=== PATIENT | female | born 1960 ===

== ENCOUNTER 2017-03-22 14:36 | Emergency (ER) | payer MEDICARE, OTHER ==
[2017-03-22 14:36] VITALS: BMI 24.0
[2017-03-22] MEDS ORDERED: Albuterol-Ipratrop 3 mg / 0.5 (3 ml) UD ONE ×2 (14:52→15:35)
--- NOTE | 2017-03-22 15:14 | C.PDOC ---
History Of Present Illness 57 y/o female, past medical history of asthma and COPD, presents to emergency department with complaints of cough and congestion for 2 days. Denies fevers, chills, nausea, vomiting, chest pain, or SOB. Time Seen by Provider: 03/22/17 15:02 Chief Complaint (Nursing): Shortness Of Breath History Per: Patient History/Exam Limitations: no limitations Onset/Duration Of Symptoms: Hrs Current Symptoms Are (Timing): Still Present Initiating Event: Upper Respiratory Illness, Out Of Medications Exacerbating Factor(s): Coughing Current Respiratory Medications: See Home Med List Severity: Mild Associated Symptoms: denies: Fever, Chills, Chest Pain, Bloody Cough, Dizziness Recent travel outside of the [place]: No Past Medical History Reviewed: Historical Data, Nursing Documentation, Vital Signs Vital Signs: Last Vital Signs Temp 97.8 F 03/22/17 14:55 Pulse 99 H 03/22/17 14:55 Resp 20 03/22/17 15:30 BP 101/64 03/22/17 14:55 Pulse Ox 97 03/22/17 17:12 - Medical History PMH: Alzheimer's Disease, Asthma, CAD, Dementia, Diabetes (type II), HTN, Hypercholesterolemia, TIA Surgical History: Hernia Repair (ventral, inguinal), (x3) - [facility] Procedures CYSTOSCOPY NEC (07/30/13) Family History: States: Unknown Family Hx - Social History Hx Tobacco Use: No Hx Alcohol Use: Yes Hx Substance Use: No - Immunization History Hx Tetanus Toxoid Vaccination: No Hx Influenza Vaccination: No Hx Pneumococcal Vaccination: No Review Of Systems Except As Marked, All Systems Reviewed And Found Negative. Constitutional: Negative for: Fever, Chills ENT: Positive for: Nose Congestion Cardiovascular: Negative for: Chest Pain Respiratory: Positive for: Cough, Sputum, Other (rhonchi bilateral). Negative for: Shortness of Breath, Wheezing Gastrointestinal: Negative for: Nausea, Vomiting Skin: Negative for: Rash Physical Exam - Physical Exam Appears: Non-toxic, No Acute Distress Skin: Warm, Dry Head: Atraumatic, Normacephalic Oral Mucosa: Moist Chest: Symmetrical Cardiovascular: Rhythm Regular Respiratory: No Accessory Muscle Use, No Rales, Rhonchi (bilaterally), No Wheezing Gastrointestinal/Abdominal: Soft, No Tenderness Back: Normal Inspection Extremity: Normal ROM, Capillary Refill (< 2 sec. ) Neurological/Psych: Oriented x3, Normal Speech, Normal Cognition Gait: Steady ED Course And Treatment - Laboratory Results Result Diagrams: 03/22/17 15:56 03/22/17 15:56 Lab Interpretation: Normal O2 Sat by Pulse Oximetry: 97 (RA) Pulse Ox Interpretation: Normal - Radiology CXR: Interpreted by Me CXR Interpretation: Yes: No Acute Disease Progress Note: EKG, CxR, bloodwork ordered. Treated with duoneb and prednisone. On re-evaluation feeling better, lungs clear, ambulating Reassessment Condition: Improved Disposition Counseled Patient/Family Regarding: Studies Performed, Diagnosis, Need For Followup, Rx Given - Disposition Referrals: [facility] [Outside] [email or web address] [Outside] Disposition: HOME/ ROUTINE Disposition Time: 17:30 Condition: STABLE Additional Instructions: return to ED if any increase symptoms Prescriptions: Albuterol HFA [Ventolin HFA 90 mcg/actuation (8 g)] 2 puff IH [id number] PRN #1 pkg PRN Reason: Shortness Of Breath predniSONE [Prednisone] 40 mg PO DAILY #4 tab Instructions: Asthma (ED), How to Use a Nebulizer (ED) - POA Present On Arrival: None - Clinical Impression Clinical Impression: Asthma, COPD (chronic obstructive pulmonary disease), Asthma with COPD - PA / DOT NET DEVELOPER / Resident Statement MD/DO has reviewed & agrees with the documentation as recorded. - Scribe Statement The provider has reviewed the documentation as recorded by the Estradaibkathia Kramer All medical record entries made by the Estraadibkathia were at my direction and personally dictated by me. I have reviewed the chart and agree that the record accurately reflects my personal performance of the history, physical exam, medical decision making, and the department course for this patient. I have also personally directed, reviewed, and agree with the discharge instructions and disposition.
[2017-03-22] MEDS: Albuterol-Ipratrop 3 mg / 0.5 (3 ml) UD IH SCH ×3 (15:15→15:44)
--- NOTE | 2017-03-22 15:52 | RAD ---
PROCEDURE: CHEST RADIOGRAPH, 1 VIEW HISTORY: SOB COMPARISON: Comparison chest 04/12/2016 FINDINGS: LUNGS: Poor inspiration with low lung volumes, mild crowded bronchovascular markings and mild bibasilar atelectasis PLEURA: No pneumothorax or pleural fluid seen. CARDIOVASCULAR: Normal. OSSEOUS STRUCTURES: No significant abnormalities. VISUALIZED UPPER ABDOMEN: Normal. OTHER FINDINGS: None. IMPRESSION: Poor inspiration with low lung volumes, mild crowded bronchovascular markings and mild bibasilar atelectasis
[2017-03-22 16:05] LABS: BASO % 0.4 % (0.0-2.0); EOS # 0.1 K/uL (0.0-0.7); EOS % 1.1 % (0.0-4.0); HEMATOCRIT 40.5 % (34.0-47.0); LYMPH # 4.1 K/uL (1.0-4.3); LYMPH % 63.4 % (20.0-40.0); MEAN CELL VOLUME 82.6 fL (81.0-99.0); MEAN CORPUSCULAR HEMOGLOBIN 27.5 pg (27.0-31.0); MEAN CORPUSCULAR HGB CONC 33.3 g/dL (33.0-37.0); MEAN PLATELET VOLUME 11.1 fL (7.2-11.7); MONO # 0.5 K/uL (0.0-0.8); MONO % 7.1 % (0.0-10.0); NRBC % 0.1 % (0.0-2.0); RED CELL DISTRIBUTION WIDTH 14.4 % (11.5-14.5); WHITE BLOOD COUNT 6.4 K/uL (4.8-10.8)
[2017-03-22 16:17] LABS: CHLORIDE 102 mmol/L (98-107)
[2017-03-22 16:18] LABS: POTASSIUM 4.4 mmol/L (3.6-5.2); SODIUM 139 mmol/L (132-148)
[2017-03-22 16:20] LABS: ALB/GLOB RATIO 1.3 (1.0-2.1); AST/SGOT 38 U/L (14-36); BILIRUBIN,TOTAL 0.7 mg/dL (0.2-1.3); BLOOD UREA NITROGEN 12 mg/dL (7-17); CARBON DIOXIDE 24 mmol/L (22-30); GFR AFRICAN-AMERICAN > 60; TOTAL PROTEIN 7.4 g/dL (6.3-8.3)
[2017-03-22 16:21] LABS: ALKALINE PHOSPHATASE 68 U/L (38-126); ALT/SGPT 23 U/L (9-52); CALCIUM 8.8 mg/dl (8.6-10.4); GLUCOSE,RANDOM 180 mg/dL (65-105)
[2017-03-22 18:02] VITALS: BP 125/77; PULSE 90; RESP 18; TEMP 97.9; O2SAT 98
--- NOTE | 2017-03-26 15:32 | CARD ---
APPROVED REPORT EKG Measurement Heart [id number] NM 172P52 [id number] <Conclusion> Normal sinus rhythm Prolonged QT Abnormal ECG
== END 2017-03-22 18:02 | disposition home or self-care (01) ==
LOC: C.ER 14:36
DX: J44.9 Chronic obstructive pulmonary disease, unspecified (principal)
CPT/HCPCS: 71010; 80053; 83880; 85025; 93005; 94640; 96374; 99284; J2930

== ENCOUNTER 2017-11-29 15:23 | Emergency (ER) | payer MEDICARE, OTHER ==
[2017-11-29 15:23] VITALS: BMI 24.0
[2017-11-29 16:11] VITALS: O2SAT 100
--- NOTE | 2017-11-29 17:25 | C.PDOC ---
History Of Present Illness 57 y/o female with history of 2 strokes, DM, HTN and Arthritis presents to ED with complaints of intermittent pressure headache for 3 days. Patient states she feels pressure and numbness to sinus area of face with associated swelling and reports bleeding from nose and mouth. Patient reports chills and states when she wakes up feels nausea. Patient denies chest pain, sob, fever or any other complaints at this time. Time Seen by Provider: 11/29/17 17:08 Chief Complaint (Nursing): Dizziness/Lightheaded History Per: Patient History/Exam Limitations: no limitations Onset/Duration Of Symptoms: Days Current Symptoms Are (Timing): Still Present Past Medical History Reviewed: Historical Data, Nursing Documentation, Vital Signs Vital Signs: Last Vital Signs Temp 98.6 F 11/29/17 16:08 Pulse 79 11/29/17 16:08 Resp 20 11/29/17 16:08 BP 143/81 11/29/17 16:08 Pulse Ox 100 11/29/17 17:31 - Medical History PMH: Alzheimer's Disease, Asthma, CAD, Dementia, Diabetes (type II), HTN, Hypercholesterolemia, TIA Surgical History: Hernia Repair (ventral, inguinal), (x3) - [facility] Procedures CYSTOSCOPY NEC (07/30/13) GROUP PSYCHOTHERAPY (05/31/17) INDIVIDUAL PSYCHOTHERAPY, BEHAVIORAL (05/31/17) Family History: States: No Known Family Hx - Social History Hx Tobacco Use: No Hx Alcohol Use: No Hx Substance Use: No - Immunization History Hx Tetanus Toxoid Vaccination: No Hx Influenza Vaccination: No Hx Pneumococcal Vaccination: No Review Of Systems Constitutional: Positive for: Chills. Negative for: Fever ENT: Positive for: Nose Discharge Gastrointestinal: Positive for: Nausea. Negative for: Vomiting Skin: Negative for: Rash Neurological: Positive for: Numbness, Headache. Negative for: Weakness Physical Exam - Physical Exam Appears: Non-toxic, No Acute Distress Skin: Warm, Dry, No Rash Head: Atraumatic, Normacephalic Eye(s): bilateral: Normal Inspection Ear(s): Bilateral: Normal Nose: Epistaxis (right nostril), No Deformity Neck: Normal ROM, Other (Swollen glands) Cardiovascular: Rhythm Regular Respiratory: Normal Breath Sounds, No Rales, No Rhonchi, No Wheezing Gastrointestinal/Abdominal: Soft, No Tenderness, No Guarding, No Rebound Back: No CVA Tenderness Extremity: Normal ROM, Capillary Refill (<2 seconds) Neurological/Psych: Oriented x3 ED Course And Treatment - Laboratory Results Result Diagrams: 11/29/17 17:44 11/29/17 17:44 Lab Interpretation: No Acute Changes ECG: Interpreted By Me ECG Rhythm: Sinus Rhythm ECG Interpretation: Normal O2 Sat by Pulse Oximetry: 100 (RA) Pulse Ox Interpretation: Normal - CT Scan/US sinuses Other Rad Studies (CT/US): Read By Radiologist, Radiology Report Reviewed CT/US Interpretation: Accession No. : [id number]. Patient Name / ID : JOSE BEE / [id number]. Exam Date : 11/29/2017 17:57:55 ( Approved ). Study Comment : Sex / Age : F / 57Y. Creator : Jade Alfredo. Dictator : Rafat Gaytan MD. Electric Plater : Supervisor Drying And Winding : Rafat Gaytan MD. Approver2 : Report Date : 11/29/2017 18:06:50. My Comment : . PROCEDURE: CT SINUSES WITHOUT CONTRAST. HISTORY: sinus pain with epistaxis. COMPARISON : None. TECHNIQUE: Contiguous axial CT images of the paranasal sinuses were obtained. Coronal and sagittal reformats were generated. Radiation dose: Total exam DLP = 716.53 mGy-cm. This CT exam was performed using one or more of the followin complex intact bilaterally. G dose reduction techniques: Automated exposure control, adjustment of the mA and/or kV according to patient size, and/or use of iterative reconstruction technique. FINDINGS: FRONTAL SINUSES: Clear. ETHMOID SINUSES: Clear. SPHENOID SINUSES: Clear. MAXILLARY SINUSES: . Dependent fluid in the maxillary sinus bilaterally. Small left maxillary retention cyst/polyp. SINUS DRAINAGE: Osteomeatal complexes, frontal recesses and sphenoethmoid recesses clear. NASAL SEPTUM: No significant deviation. No destructive lesion. MASS: None. SKULL BASE: Unremarkable. TEMPORAL BONES: Middle ears and mastoid grossly unremarkable. OTHER FINDINGS: None. IMPRESSION: Dependent fluid in both maxillary antra. Possible bilateral acute maxillary sinusitis. Please correlate. Small left maxillary retention cyst/ polyp. Otherwise unremarkable. Reevaluation Time: 18:56 Reassessment Condition: Improved Disposition Counseled Patient/Family Regarding: Studies Performed, Diagnosis, Need For Followup, Rx Given - Disposition Referrals: Alvina Forde MD [Medical Doctor] - Disposition: HOME/ ROUTINE Disposition Time: 19:00 Condition: IMPROVED Prescriptions: Acetaminophen [Tylenol 325mg tab] 650 mg PO Q4 PRN #60 tab PRN Reason: Pain, Moderate (4-7) Clarithromycin [Clarithromycin ER] 500 mg PO BID #20 ter Instructions: Sinusitis (ED) Forms: [employer] (Luxembourgish) Print Language: CITIZEN OF [place] - POA Present On Arrival: None - Clinical Impression Clinical Impression: Sinusitis, acute - Scribe Statement The provider has reviewed the documentation as recorded by the Stefan Pittman All medical record entries made by the Stefan were at my direction and personally dictated by me. I have reviewed the chart and agree that the record accurately reflects my personal performance of the history, physical exam, medical decision making, and the department course for this patient. I have also personally directed, reviewed, and agree with the discharge instructions and disposition.
[2017-11-29 17:49] LABS: BASO # 0.1 K/uL (0.0-0.2); BASO % 0.8 % (0.0-2.0); EOS # 0.1 K/uL (0.0-0.7); EOS % 1.3 % (0.0-4.0); HEMOGLOBIN 13.1 g/dL (11.0-16.0); LYMPH # 3.4 K/uL (1.0-4.3); MEAN CELL VOLUME 81.8 fL (81.0-99.0); MEAN CORPUSCULAR HEMOGLOBIN 27.8 pg (27.0-31.0); MEAN CORPUSCULAR HGB CONC 34.1 g/dL (33.0-37.0); MEAN PLATELET VOLUME 10.9 fL (7.2-11.7); MONO # 0.3 K/uL (0.0-0.8); MONO % 4.5 % (0.0-10.0); NEUT # 2.9 K/uL (1.8-7.0); NEUT % 43.4 % (50.0-75.0); NRBC % 0.1 % (0.0-2.0); RBC 4.7 Mil/uL (3.80-5.20); RED CELL DISTRIBUTION WIDTH 14.2 % (11.5-14.5); WHITE BLOOD COUNT 6.8 K/uL (4.8-10.8)
[2017-11-29 18:01] LABS: GFR AFRICAN-AMERICAN > 60; GFR NON-AFRICAN AMERICAN > 60; PROTHROMBIN TIME 11.6 SECONDS (9.7-12.2)
[2017-11-29 18:18] LABS: ALB/GLOB RATIO 1.3 (1.0-2.1); ALT/SGPT 20 U/L (9-52); AST/SGOT 33 U/L (14-36); BLOOD UREA NITROGEN 15 mg/dL (7-17)
--- NOTE | 2017-11-29 18:41 | CT ---
PROCEDURE: CT SINUSES WITHOUT CONTRAST HISTORY: sinus pain with epistaxis COMPARISON: None TECHNIQUE: Contiguous axial CT images of the paranasal sinuses were obtained. Coronal and sagittal reformats were generated. Radiation dose: Total exam DLP = 716.53 mGy-cm. This CT exam was performed using one or more of the followin complex intact bilaterally. G dose reduction techniques: Automated exposure control, adjustment of the mA and/or kV according to patient size, and/or use of iterative reconstruction technique. FINDINGS: FRONTAL SINUSES: Clear. ETHMOID SINUSES: Clear. SPHENOID SINUSES: Clear. MAXILLARY SINUSES: . Dependent fluid in the maxillary sinus bilaterally. Small left maxillary retention cyst/polyp. SINUS DRAINAGE: Osteomeatal complexes, frontal recesses and sphenoethmoid recesses clear. NASAL SEPTUM: No significant deviation. No destructive lesion. MASS: None. SKULL BASE: Unremarkable. TEMPORAL BONES: Middle ears and mastoid grossly unremarkable. OTHER FINDINGS: None. IMPRESSION: Dependent fluid in both maxillary antra. Possible bilateral acute maxillary sinusitis. Please correlate. Small left maxillary retention cyst/ polyp. Otherwise unremarkable.
[2017-11-29 19:03] VITALS: BP 134/82; PULSE 76; RESP 18; TEMP 97.9
--- NOTE | 2017-11-30 12:50 | CARD ---
APPROVED REPORT EKG Measurement Heart [id number] [place] 172P52 [id number] <Conclusion> Normal sinus rhythm Normal ECG
== END 2017-11-29 19:27 | disposition home or self-care (01) ==
LOC: C.ER 15:23
DX: J01.90 Acute sinusitis, unspecified (principal)

== ENCOUNTER 2017-12-22 12:59 | Emergency (ER) | payer MEDICARE, OTHER ==
[2017-12-22 13:20] VITALS: BMI 25.7
[2017-12-22 13:21] VITALS: RESP 18; TEMP 98.3
[2017-12-22] MEDS ORDERED: Iohexol 240 (50 ml) PO STA (14:41)
[2017-12-22] MEDS ORDERED: Sodium Chloride 0.9% 1,000 ML IV ONE (14:41)
--- NOTE | 2017-12-22 14:48 | C.PDOC ---
History Of Present Illness <Magdalena Vanegas - Last Filed: 12/22/17 17:26> <Topher Mcmullen DO - Last Filed: 12/22/17 20:51> CC: "belly distension" HPI: 57 year old female with past medical history of DM type II, HLD who presents to the ED for nausea and abdominal distension. She states she has noticed her abdomen distended for 3 days. She has also had LUQ pain for the past 3 days that has been a constant 5/10 pain that does not radiate. She states the pain feels like something is in her abdomen. She states she did eat this morning but can only eat small amounts of food for that past 3 days. She has had nausea but denies vomiting. She states she had a normal bowel movement today. She denies blood in her stool, dysuria, shortness of breath, chest pain , palpitations, sick contacts, diarrhea or constipation. PMD: does not recall Past Medical History: DM type II; HLD; sinusitis; arthritis Past Surgical History: c-sections x3; fibroids; hysterectomy; hernia Medications: does not recall medication doses - Metformin; Metoprolol; Aspirin Allergies: Penicillin- rash; iodine - rash Social History: 1 cigarette per day for 16 years; denies alcohol use; denies illicit drug use (Magdalena Vanegas) History Per: Patient History/Exam Limitations: no limitations Current Symptoms Are (Timing): Still Present Severity: Moderate Pain Scale Rating Of: 5 Location Of Pain/Discomfort: LUQ Radiation Of Pain To:: None Quality Of Discomfort: Other (feels like something is there ) Associated Symptoms: Nausea Exacerbating Factors: Food Last Bowel Movement: Today <Magdalena Vanegas - Last Filed: 12/22/17 17:26> <Topher Mcmullen DO - Last Filed: 12/22/17 20:51> Chief Complaint (Nursing): Abdominal Pain Past Medical History - Medical History PMH: Alzheimer's Disease, Asthma, CAD, Dementia, Diabetes (type II), HTN, Hypercholesterolemia, TIA Denies: HIV, Chronic Kidney Disease Surgical History: Hernia Repair (ventral, inguinal), (x3) Family History: States: Unknown Family Hx - Social History Hx Tobacco Use: No Hx Alcohol Use: No Hx Substance Use: No - Immunization History Hx Tetanus Toxoid Vaccination: No Hx Influenza Vaccination: No Hx Pneumococcal Vaccination: No <Magdalena Vanegas - Last Filed: 12/22/17 17:26> Vital Signs: Last Vital Signs Temp 98.3 F 12/22/17 17:47 Pulse 67 12/22/17 17:47 Resp 18 18 17:47 BP 120/77 12/22/17 17:47 Pulse Ox 100 12/22/17 17:47 - [facility] Procedures CYSTOSCOPY NEC (07/30/13) GROUP PSYCHOTHERAPY (05/31/17) INDIVIDUAL PSYCHOTHERAPY, BEHAVIORAL (05/31/17) Review Of Systems Constitutional: Negative for: Fever, Chills Cardiovascular: Negative for: Chest Pain, Palpitations, Light Headedness Respiratory: Negative for: Cough, Shortness of Breath Gastrointestinal: Positive for: Nausea, Abdominal Pain. Negative for: Vomiting , Diarrhea, Constipation, Melena, Hematochezia Genitourinary: Negative for: Dysuria, Hematuria Neurological: Negative for: Dizziness <Magdalena Vanegas S. - Last Filed: 12/22/17 17:26> Physical Exam - Physical Exam Appears: Well Skin: Normal Color Head: Atraumatic, Normacephalic Eye(s): bilateral: Normal Inspection, PERRL, EOMI Oral Mucosa: Moist Cardiovascular: Rhythm Regular, No Murmur Respiratory: Normal Breath Sounds, No Decreased Breath Sounds, No Accessory Muscle Use, No Rales, No Rhonchi, No Stridor, No Wheezing Gastrointestinal/Abdominal: Bowel Sounds (normal), Soft, Tenderness (RUQ tenderness; + Bautista sign), Distention, No Guarding, No Rebound, No Ascites Extremity: No Tenderness, No Pedal Edema, No Calf Tenderness Neurological/Psych: Oriented x3, Normal Speech, Normal Cognition <Magdalena Vanegas S. - Last Filed: 12/22/17 17:26> ED Course And Treatment - Laboratory Results Result Diagrams: 12/22/17 15:43 12/22/17 15:43 O2 Sat by Pulse Oximetry: 98 <Magdalena Vanegas S. - Last Filed: 12/22/17 17:26> - Laboratory Results Result Diagrams: 12/22/17 15:43 12/22/17 15:43 <Topher Mcmullen DO - Last Filed: 12/22/17 20:51> Medical Decision Making <Magdalena Vanegas - Last Filed: 12/22/17 17:26> <Topher Mcmullen DO - Last Filed: 12/22/17 20:51> Medical Decision Making: Abdominal Pain - Abdominal/Pelvis CT: mild bladder wall thickening, possibly artifactual due to inadequate distension. Correlate for cystitis. - US: fatty infiltration of the liver. Geographic hypoechoic region in the right lobe of the liver likely reflects focal fatty sparing. No evidence of cholelithiasis or cholecystitis. - cbc wnl - cmp wnl - UA: negative - lipase: wnl - NS @250cc/hr - Zofran 4mg IV once - Pepcid 20mg IV once (Magdalena Vanegas) Disposition Discussed With Dr.: Topher Mcmullen DO Doctor Will See Patient In The: ED - Disposition Disposition Time: 17:28 <Magdalena Vanegas - Last Filed: 12/22/17 17:26> - Disposition Disposition Time: 17:00 <Topher Mcmullen DO - Last Filed: 12/22/17 20:51> - Disposition Referrals: [facility] Leidy Reangélica, [Non-Staff] - Disposition: HOME/ ROUTINE Condition: GOOD Additional Instructions: Thank you for letting us take care of you today. The emergency medical care you received today was directed at your acute symptoms. If you were prescribed any medication, please fill it and take as directed. It may take several days for your symptoms to resolve. Return to the Emergency Department if your symptoms worsen, do not improve, or if you have any other problems. Please contact your doctor or call one of the physicians/clinics you have been referred to that are listed on the Patient Visit Information form that is included in your discharge packet. Bring any paperwork you were given at discharge with you along with any medications you are taking to your follow up visit. Our treatment cannot replace ongoing medical care by a primary care provider (PCP) outside of the emergency department. Thank you for allowing the [facility] team to be part of your care today. Follow up with your doctor in 4-5 days for re-evaluation and further management. Instructions: Constipation in Adults Forms: [employer] (Korean) - Clinical Impression Clinical Impression: Constipation
[2017-12-22] MEDS ORDERED: Iohexol 240 (50 ml) ONE (15:03)
[2017-12-22] MEDS ORDERED: Sodium Chloride 0.9% 1,000 ML ONE (15:04)
[2017-12-22 15:49] LABS: BASO # 0.1 K/uL (0.0-0.2); BASO % 0.9 % (0.0-2.0); EOS # 0.1 K/uL (0.0-0.7); EOS % 0.8 % (0.0-4.0); HEMOGLOBIN 13.4 g/dL (11.0-16.0); MEAN CELL VOLUME 81.5 fL (81.0-99.0); MEAN CORPUSCULAR HEMOGLOBIN 28.6 pg (27.0-31.0); MEAN CORPUSCULAR HGB CONC 35.1 g/dL (33.0-37.0); MEAN PLATELET VOLUME 11.1 fL (7.2-11.7); MONO # 0.3 K/uL (0.0-0.8); MONO % 4.8 % (0.0-10.0); NEUT % 46.5 % (50.0-75.0); NRBC % 0.1 % (0.0-2.0); RBC 4.68 Mil/uL (3.80-5.20); RED CELL DISTRIBUTION WIDTH 14.3 % (11.5-14.5); WHITE BLOOD COUNT 6.5 K/uL (4.8-10.8)
[2017-12-22 16:00] LABS: SQUAMOUS EPITHIAL < 1 /hpf (0-5); URINE BILIRUBIN NEGATIVE (NEGATIVE); URINE BLOOD NEGATIVE (NEGATIVE); URINE CLARITY Clear (Clear); URINE COLOR Yellow (YELLOW); URINE GLUCOSE (UA) 2+ mg/dL (Normal); URINE LEUKOCYTE ESTERASE NEG Leu/uL (Negative); URINE NITRATE NEGATIVE (NEGATIVE); URINE PROTEIN NEGATIVE (NEGATIVE); URINE UROBILINOGEN NORMAL mg/dL (0.2-1.0)
[2017-12-22 16:08] LABS: ALB/GLOB RATIO 1.3 (1.0-2.1); ALBUMIN 3.9 g/dL (3.5-5.0); CALCIUM 9.4 mg/dl (8.6-10.4); GFR AFRICAN-AMERICAN > 60; GFR NON-AFRICAN AMERICAN > 60; LIPASE 178 U/L (23-300)
[2017-12-22 16:09] LABS: ALT/SGPT 23 U/L (9-52); AST/SGOT 33 U/L (14-36); BLOOD UREA NITROGEN 16 mg/dL (7-17)
--- NOTE | 2017-12-22 16:52 | US ---
HISTORY: RUQ tenderness COMPARISON: None. TECHNIQUE: Sonographic evaluation of the abdomen. FINDINGS: LIVER: Measures 15.7 cm. Diffusely increased echogenicity of the liver parenchyma. Consistent with fatty infiltration. Somewhat geographic 1.4 x 2.2 cm region decreased echogenicity noted in the right lobe of the liver, possibly focal fatty sparing. No biliary ductal dilatation. GALLBLADDER: Unremarkable. No gallstones. COMMON BILE DUCT: Measures 4 mm. No stones. No dilatation. PANCREAS: Unremarkable as visualized. No mass. No ductal dilatation. RIGHT KIDNEY: Measures 10.3cm. Normal echogenicity. No calculus, mass, or hydronephrosis. LEFT KIDNEY: Measures 10.3cm. Normal echogenicity. No calculus, mass, or hydronephrosis. SPLEEN: Normal in size and contour. No mass. AORTA: No aneurysmal dilatation. IVC: Unremarkable. OTHER FINDINGS: None. IMPRESSION: Fatty infiltration of the liver. Geographic hypoechoic region in the right lobe of the liver likely reflects focal fatty sparing. No evidence of cholelithiasis or cholecystitis.
--- NOTE | 2017-12-22 16:57 | CT ---
PROCEDURE: CT Abdomen and Pelvis without intravenous contrast HISTORY: abdominal pain COMPARISON: 03/12/2015 TECHNIQUE: Without contrast.. Contrast Dose: 0 Radiation dose: Total exam DLP = 582.97 mGy-cm. This CT exam was performed using one or more of the following dose reduction techniques: Automated exposure control, adjustment of the mA and/or kV according to patient size, and/or use of iterative reconstruction technique. FINDINGS: LOWER THORAX: Unremarkable. LIVER: Normal size, contour and attenuation. No mass. No biliary dilatation. GALLBLADDER AND BILE DUCTS: Partially contracted. No calcified gallstones. No mural thickening. PANCREAS: Unremarkable. No gross lesion or ductal dilatation. SPLEEN: Unremarkable. ADRENALS: Unremarkable. No mass. KIDNEYS AND URETERS: Unremarkable. No hydronephrosis. No solid mass. VASCULATURE: Unremarkable. No aortic aneurysm. BOWEL: Unremarkable. No obstruction. No gross mural thickening. APPENDIX: Unremarkable. Normal appendix. PERITONEUM: Unremarkable. No free fluid. No free air. LYMPH NODES: Unremarkable. No enlarged lymph nodes. BLADDER: Mild bladder wall thickening, nonspecific. Correlate for cystitis. Possibly artifactual. Bladder poorly distended. REPRODUCTIVE: Normal prostate BONES: No acute fracture. OTHER FINDINGS: None. IMPRESSION: Mild bladder wall thickening, possibly artifactual due to inadequate distention. Correlate for cystitis. Otherwise unremarkable examination.
[2017-12-22 17:48] VITALS: BP 120/77; PULSE 67; O2SAT 100
== END 2017-12-22 17:48 | disposition home or self-care (01) ==
LOC: C.ER 12:59
DX: K59.00 Constipation, unspecified (principal); I25.10 Atherosclerotic heart disease of native coronary artery without angina pectoris; I10 Essential (primary) hypertension; E11.9 Type 2 diabetes mellitus without complications; E78.00 Pure hypercholesterolemia, unspecified; F17.210 Nicotine dependence, cigarettes, uncomplicated
CPT/HCPCS: 74176; 76700; 80053; 81001; 83690; 85025; 87086; 87181; 96374; 96375; 99285; J2405; J7040; Q9966

== ENCOUNTER 2018-02-03 16:19 | Emergency (ER) | payer MEDICARE, OTHER ==
[2018-02-03 16:20] VITALS: BMI 25.7
[2018-02-03 16:31] VITALS: BP 114/76; PULSE 97; RESP 18; TEMP 98.9; O2SAT 100
[2018-02-03] MEDS ORDERED: Sodium Chloride 0.9% 1,000 ML IV ONE (17:02)
--- NOTE | 2018-02-03 17:02 | C.PDOC ---
History Of Present Illness PT ELOPED PRIOR TO MY EVAL Time Seen by Provider: 02/03/18 16:51 Chief Complaint (Nursing): Abdominal Pain Past Medical History Vital Signs: Last Vital Signs Temp 98.9 F 02/03/18 16:29 Pulse 97 H 02/03/18 16:29 Resp 18 02/03/18 16:29 BP 114/76 02/03/18 16:29 Pulse Ox 100 02/03/18 17:02 - Medical History PMH: Alzheimer's Disease, Asthma, CAD, Dementia, Diabetes (type II), HTN, Hypercholesterolemia, TIA Denies: HIV, Chronic Kidney Disease Surgical History: Hernia Repair (ventral, inguinal), (x3) - [facility] Procedures CYSTOSCOPY NEC (07/30/13) GROUP PSYCHOTHERAPY (05/31/17) INDIVIDUAL PSYCHOTHERAPY, BEHAVIORAL (05/31/17) Family History: States: Unknown Family Hx - Social History Hx Tobacco Use: No Hx Alcohol Use: No Hx Substance Use: No - Immunization History Hx Tetanus Toxoid Vaccination: No Hx Influenza Vaccination: No Hx Pneumococcal Vaccination: No ED Course And Treatment O2 Sat by Pulse Oximetry: 100 Disposition - Disposition Disposition: ELOPEMENT - ER ONLY Disposition Time: 17:26 Condition: UNKNOWN Forms: [facility] (Welsh) - Clinical Impression Clinical Impression: Vomiting, Diarrhea, Nausea
[2018-02-03] MEDS ORDERED: Atropine-Diphenoxylate 0.025-2.5 mg Tab PO STA (17:03)
== END 2018-02-03 16:51 | disposition left against medical advice (07) ==
LOC: C.ER 16:19
DX: R11.2 Nausea with vomiting, unspecified (principal); R19.7 Diarrhea, unspecified